=== PATIENT | male | born 1950 | race Caucasian/White ===

== ENCOUNTER 2020-01-06 10:13 | Day surgery (SDC) | payer MEDICARE, BC ==
[2020-01-06] MEDS ORDERED: Sodium Chloride 0.9% 10 ML Syringe IV ONE (10:14)
[2020-01-06] MEDS ORDERED: Midazolam 1 MG/ML 2 ML SDV IV ONE (10:14)
[2020-01-06] MEDS ORDERED: Dexamethasone 4 MG/ML SDV IV ONE (10:14)
[2020-01-06] MEDS ORDERED: Proparacaine 0.5% Ophth Soln 15 ML Bottle EYERT ONE (10:15)
[2020-01-06] MEDS ORDERED: Timolol Maleate 0.25% Ophth Soln 5 ML Bottle EYERT SCH (10:15)
[2020-01-06] MEDS ORDERED: Tropicamide 1% Ophth Soln 15 ML Bottle EYERT ONE (10:15)
[2020-01-06] MEDS ORDERED: Phenylephrine 10% Ophth Soln 5 ML Bot EYERT ONE (10:15)
[2020-01-06] MEDS ORDERED: Moxifloxacin 0.5% Ophth Soln 3 ML Bottle EYERT ONE (10:15)
[2020-01-06] MEDS ORDERED: Povidone-Iodine 5% Sterile Ophth Soln 30 ML Bottle EYERT ONE ×2 (10:15→10:58)
[2020-01-06] MEDS ORDERED: Dilation Soln 1 EA EACH EYERT ONE (10:15)
[2020-01-06] MEDS ORDERED: Sodium Chloride 0.9% 10 ML Syringe FLUSH PRN (10:15)
[2020-01-06 10:40] VITALS: PULSE 63
[2020-01-06] MEDS ORDERED: Tetracaine HCl/PF 0.5% 4 ML Bottle EYERT ONE (10:57)
[2020-01-06] MEDS ORDERED: Lidocaine 1% 30 ML SDV ONE (10:57)
[2020-01-06] MEDS ORDERED: Apraclonidine 0.5% Ophth Soln 5 ML Bot EYERT ONE (10:58)
[2020-01-06] MEDS ORDERED: Diclofenac Sodium 0.1% Ophth Soln 5 ML Bottle EYERT ONE (10:59)
[2020-01-06] MEDS ORDERED: Vancomycin 500 MG SDV EYERT ONE (10:59)
[2020-01-06] MEDS ORDERED: Dexamethasone/Neomycin/Polymyxin B Ophth Oint 3.5 GM Tube EYERT ONE (10:59)
[2020-01-06] MEDS ORDERED: Balanced Salt Solution Ophth Irrig 500 ML Bottle IOCULAR ONE (10:59)
[2020-01-06] MEDS ORDERED: Chondroitin Sulfate/Hyaluronate Sodium Ophth Inj 0.75 ML Syringe EYERT ONE (11:00)
[2020-01-06] MEDS ORDERED: Dexamethasone 4 MG/ML SDV ONE (11:06)
[2020-01-06 12:10] VITALS: BP 160/82
[2020-01-06] MEDS ORDERED: Timolol Maleate 0.5% Ophth Soln 5 ML Bottle EYERT SCH (12:30)
--- NOTE | 2020-01-07 09:15 | OR ---
DATE: 01/06/2020 PREOPERATIVE DIAGNOSIS: Visually significant complex cataract, right eye with small pupil/Malyugin Ring. POSTOPERATIVE DIAGNOSIS: Visually significant complex cataract, right eye with small pupil/Malyugin Ring. PROCEDURE: Extracapsular cataract extraction with intraocular lens implant, right eye. ANESTHESIA: Topical/local MAC. COMPLICATIONS: None. INDICATION: Mr. Sheth was seen in the clinic. 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 I explained options, offered cataract surgery, and I explained risks, including, but not limited to, infection, retinal detachment, loss of vision, need for additional surgery, risks associated with anesthesia including loss of life. 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 We discussed implant options. He has requested a monofocal implant targeting mild myopia. He understands that he may still require glasses for some activities following surgery. OPERATIVE DESCRIPTION: After informed consent was obtained and the risks, benefits, and alternatives were explained, the patient was brought to the operative suite and topical anesthesia was administered. The patient was then prepped and draped in the sterile fashion and attention was placed on the right eye. A sterile lid speculum was placed into the right eye to allow operative exposure. A full-thickness paracentesis was made in the temporal portion of the operative eye. Preservative-free lidocaine 0.1 mL was injected into the anterior chamber followed by viscoelastic. A full-thickness corneal incision was then made into the anterior chamber. A bent needle cystotome was used to create a small peri in the anterior capsule. The capsulorrhexis forceps was then used to create a 360-degree curvilinear capsulorrhexis. The nucleus was then removed using a phacoemulsification handpiece and the remaining cortical material was then removed with irrigation and aspiration handpiece. Following removal of the cortical material, the capsular bag was then inspected and noted to be free of any holes or tears. Viscoelastic was then injected into the capsular bag and the intraocular lens was inserted into the capsular bag. The viscoelastic material was then removed from both the anterior and posterior chambers and from behind the IOL. The lens and capsular bag were then reinspected. The IOL was well centered and the capsular bag intact. The wound and paracentesis sites were inspected and hydrated with balanced saline solution. Both were found to be self- sealing. The intraocular pressure was assessed digitally and found to be within normal range. A good red reflex was noted at the completion of the procedure. No complications occurred during the operation. At the completion of the procedure, Maxitrol, Voltaren, and Iopidine drops were placed into the operative eye. A sterile eye shield was placed over the operative eye and the patient was transported to the postoperative recovery area having tolerated the procedure well. Postoperative instructions were given along with a postoperative appointment. The patient was advised to call with any questions or concerns. [facility] /[id number]
== END 2020-01-06 12:12 | disposition home or self-care (01) ==
LOC: DL.SDS 10:13
PROVIDERS: ATTEND Ophthalmology
DX: H26.8 Other specified cataract (principal); Z88.0 Allergy status to penicillin; Z87.39 Personal history of other diseases of the musculoskeletal system and connective tissue; Z85.79 Personal history of other malignant neoplasms of lymphoid, hematopoietic and related tissues
CPT/HCPCS: 00142; A9270-GY; J1100; J2001; J2250; J3370; V2632

== ENCOUNTER 2020-01-13 09:48 | Day surgery (SDC) | payer MEDICARE, BC ==
[~2020-01-13 09:48] MED LIST: Povidone-Iodine 5% Sterile Ophth Soln 30 ML Bottle ONE
[2020-01-13] MEDS ORDERED: Midazolam 1 MG/ML 2 ML SDV IV ONE (09:49)
[2020-01-13] MEDS ORDERED: Dexamethasone 4 MG/ML SDV IV ONE (09:49)
[2020-01-13] MEDS ORDERED: Sodium Chloride 0.9% 10 ML Syringe IV ONE (09:49)
[2020-01-13] MEDS ORDERED: Dilation Soln 1 EA EACH EYELF ONE (10:15)
[2020-01-13] MEDS ORDERED: Moxifloxacin 0.5% Ophth Soln 3 ML Bottle EYELF ONE (10:15)
[2020-01-13] MEDS ORDERED: Timolol Maleate 0.5% Ophth Soln 5 ML Bottle EYELF ONE (10:15)
[2020-01-13] MEDS ORDERED: Acetaminophen 325 MG Tab PO PRN (10:15)
[2020-01-13] MEDS ORDERED: Povidone-Iodine 5% Sterile Ophth Soln 30 ML Bottle EYELF ONE ×2 (10:15→10:58)
[2020-01-13] MEDS ORDERED: Ondansetron 4 MG/2 ML SDV IVPUSH PRN (10:15)
[2020-01-13] MEDS ORDERED: Phenylephrine 10% Ophth Soln 5 ML Bot EYELF PRN (10:15)
[2020-01-13] MEDS ORDERED: Sodium Chloride 0.9% 10 ML Syringe FLUSH PRN (10:15)
[2020-01-13] MEDS ORDERED: Tropicamide 1% Ophth Soln 15 ML Bottle EYELF ONE (10:15)
[2020-01-13] MEDS ORDERED: Proparacaine 0.5% Ophth Soln 15 ML Bottle EYELF ONE (10:15)
[2020-01-13] MEDS ORDERED: Lidocaine 1% 30 ML SDV ONE (10:57)
[2020-01-13] MEDS ORDERED: Apraclonidine 0.5% Ophth Soln 5 ML Bot EYELF ONE (10:58)
[2020-01-13] MEDS ORDERED: Tetracaine HCl/PF 0.5% 4 ML Bottle EYELF ONE (10:58)
[2020-01-13] MEDS ORDERED: Diclofenac Sodium 0.1% Ophth Soln 5 ML Bottle EYELF ONE (10:58)
[2020-01-13] MEDS ORDERED: Dexamethasone/Neomycin/Polymyxin B Ophth Oint 3.5 GM Tube EYELF ONE (10:58)
[2020-01-13] MEDS ORDERED: Chondroitin Sulfate/Hyaluronate Sodium Ophth Inj 0.75 ML Syringe EYELF ONE (10:59)
[2020-01-13] MEDS ORDERED: Balanced Salt Solution Ophth Irrig 500 ML Bottle IOCULAR ONE (10:59)
[2020-01-13] MEDS ORDERED: Vancomycin 500 MG SDV EYELF ONE (10:59)
[2020-01-13 12:14] VITALS: BP 140/87; PULSE 64
--- NOTE | 2020-01-13 14:15 | OR ---
DATE: 01/13/2020 PREOPERATIVE DIAGNOSIS: Visually significant mixed cataract, left eye. POSTOPERATIVE DIAGNOSIS: Visually significant mixed cataract, left eye. PROCEDURE: Extracapsular cataract extraction with intraocular lens implant, left eye. ANESTHESIA: Topical/local MAC. COMPLICATIONS: None. INDICATION: Mr. Sheth was seen in the clinic with complaints of blurred vision. Examination revealed visually significant mixed cataract. I explained options, offered cataract surgery and I explained risks, including, but not limited to, infection, retinal detachment, loss of vision, need for additional surgery, and risks associated with anesthesia. We discussed implant options. He has requested a monofocal implant. We discussed refractive targets. He has requested targeting mild myopia. 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 I explained the increased risk profile associated with pseudoexfoliation including the potential for lens or implant dislocation. He has voiced an understanding with respect to risks and wished to proceed. OPERATIVE DESCRIPTION: After informed consent was obtained and the risks, benefits, and alternatives were explained, the patient was brought to the operative suite and topical anesthesia was administered. The patient was then prepped and draped in the sterile fashion and attention was placed on the left eye. A sterile lid speculum was placed into the left eye to allow operative exposure. A full-thickness paracentesis was made in the temporal portion of the operative eye. Preservative-free lidocaine 0.1 mL was injected into the anterior chamber followed by viscoelastic. A full-thickness corneal incision was then made into the anterior chamber. A bent needle cystotome was used to create a small peri in the anterior capsule. The capsulorrhexis forceps was then used to create a 360-degree curvilinear capsulorrhexis. The nucleus was then removed using a phacoemulsification handpiece and the remaining cortical material was then removed with irrigation and aspiration handpiece. Following removal of the cortical material, the capsular bag was then inspected and noted to be free of any holes or tears. Viscoelastic was then injected into the capsular bag and the intraocular lens was inserted into the capsular bag. The viscoelastic material was then removed from both the anterior and posterior chambers and from behind the IOL. The lens and capsular bag were then reinspected. The IOL was well centered and the capsular bag intact. The wound and paracentesis sites were inspected and hydrated with balanced saline solution. Both were found to be self- sealing. The intraocular pressure was assessed digitally and found to be within normal range. A good red reflex was noted at the completion of the procedure. No complications occurred during the operation. At the completion of the procedure, Maxitrol, Voltaren, and Iopidine drops were placed into the operative eye. A sterile eye shield was placed over the operative eye and the patient was transported to the postoperative recovery area having tolerated the procedure well. Postoperative instructions were given along with a postoperative appointment. The patient was advised to call with any questions or concerns. [facility] /[id number]
== END 2020-01-13 11:55 | disposition home or self-care (01) ==
LOC: DL.SDS 09:48
PROVIDERS: ATTEND Ophthalmology
DX: H25.813 Combined forms of age-related cataract, bilateral (principal); E66.9 Obesity, unspecified; Z79.899 Other long term (current) drug therapy; Z88.0 Allergy status to penicillin; Z85.79 Personal history of other malignant neoplasms of lymphoid, hematopoietic and related tissues; Z87.39 Personal history of other diseases of the musculoskeletal system and connective tissue; Z68.32 Body mass index [BMI] 32.0-32.9, adult
CPT/HCPCS: 00142; A9270-GY; J1100; J2001; J2250; J3370; V2632

== ENCOUNTER 2023-04-22 07:04 | Emergency (ER) | payer MEDICARE, BC ==
[2023-04-22 07:38] VITALS: BP 154/92; PULSE 67
[2023-04-22 08:02] LABS: BASOPHILS PERCENT AUTO 1.3 % (0.0-1.0); EOSINOPHILS PERCENT AUTO 3.4 % (1.0-3.0); HEMATOCRIT 49.9 % (40.0-54.0); HEMOGLOBIN 16.4 g/dL (14.0-18.0); LYMPHOCYTES PERCENT AUTO 32.6 % (20.5-50.1); MEAN CORPUSCULAR HEMOGLOBIN 30.1 pg (27.0-34.0); MEAN CORPUSCULAR HGB CONC 32.9 g/dL (33.0-35.0); MEAN CORPUSCULAR VOLUME 91.7 fL (80-100); MONOCYTES PERCENT AUTO 8.8 % (2-8); NEUTROPHILS PERCENT AUTO 53.9 % (42.2-75.2); PLATELET COUNT,PLT 239 10^3/uL (150-450); RED BLOOD CELL COUNT 5.44 10^6/uL (4.6-6.2)
[2023-04-22] MEDS: Sodium Chloride 0.9% 10 ML Syringe FLUSH PRN ×2 (08:09→08:41)
[2023-04-22 08:19] LABS: ALANINE AMINOTRANSFERASE,ALT 17 U/L (16-63); ALBUMIN 3.3 g/dL (3.4-5.0); ALKALINE PHOSPHATASE 124 U/L (46-116); ANION GAP 10.6 mEq/L (7-13); ASPARTATE AMNIOTRANSFERASE,AST 12 U/L (15-37); BILIRUBIN TOTAL 0.6 mg/dL (0.2-1.0); BLOOD UREA NITROGEN,BUN 14 mg/dL (7-18); BUN/CREATININE RATIO 10.7 (No establ ref range); CARBON DIOXIDE,CO2 29 mmol/L (21-32); CHLORIDE,CL 103 mmol/L (98-107); CREATININE 1.31 mg/dL (0.70-1.30); EST CRCL DRUG DOSING (CG) 59.13 mL/min; GLUCOSE RANDOM 110 mg/dL (70-99); POTASSIUM,K 4.6 mmol/L (3.5-5.1); PROTEIN TOTAL,TP 7.1 g/dL (6.4-8.2); SODIUM,NA 138 mmol/L (136-145)
[2023-04-22 08:22] LABS: LACTIC ACID 1.2 mmol/L (0.4-2.0)
[2023-04-22 08:23] LABS: A/G RATIO 0.87; C-REACTIVE PROTEIN < 0.50 ng/dL (<=0.50); ESTIMATED GFR 57 mL/min (>=60)
[2023-04-22] MEDS ORDERED: Sodium Chloride 0.9% 1,000 ML IV ONE (08:35)
[2023-04-22] MEDS ORDERED: Iopamidol 755 Mg/ML 100 ML Bottle IVPUSH ONE (08:35)
[2023-04-22] MEDS ORDERED: valACYclovir 1,000 MG Tab PO ONE (08:47)
[2023-04-22] MEDS ORDERED: Dexamethasone 4 MG/ML SDV IVPUSH ONE (08:48)
[2023-04-22] MEDS ORDERED: Lidocaine 5% Oint 35.44 GM Tube TOP ONE (09:57)
[2023-04-22] MEDS ORDERED: valACYclovir 1,000 MG Tab ONE (10:43)
== END 2023-04-22 10:57 | disposition home or self-care (01) ==
LOC: DL.ED 07:04
DX: I77.819 Aortic ectasia, unspecified site (principal); B02.9 Zoster without complications; Z90.49 Acquired absence of other specified parts of digestive tract; Z79.899 Other long term (current) drug therapy; Z88.0 Allergy status to penicillin
CPT/HCPCS: 36415; 71275; 80053; 83605; 84145; 84484; 85025; 86140; 93005; 93010; 96361; 96374; 99284; 99285; A9270; J1100; J7030; Q9967; J3490

== ENCOUNTER 2023-05-27 17:09 | Emergency (ER) | payer MEDICARE, BC ==
[2023-05-27 17:41] VITALS: BP 126/90; PULSE 81
[2023-05-27] MEDS: Enoxaparin 100 MG/1 ML Syringe SUBCUT ONE (18:21)
[2023-05-27] MEDS: Apixaban 5 MG Tab PO ONE (18:21)
== END 2023-05-27 18:30 | disposition home or self-care (01) ==
LOC: DL.ED 17:09
DX: I26.99 Other pulmonary embolism without acute cor pulmonale (principal); Z88.0 Allergy status to penicillin
CPT/HCPCS: 96372; 99284; A9270-GY; J1650

== ENCOUNTER 2023-06-13 16:24 | Emergency (ER) | payer MEDICARE, BC ==
[2023-06-13] MEDS ORDERED: Sodium Chloride 0.9% 10 ML Syringe FLUSH PRN (17:05)
[2023-06-13 17:20] LABS: BASOPHILS PERCENT AUTO 0.6 % (0.0-1.0); EOSINOPHILS PERCENT AUTO 2.7 % (1.0-3.0); HEMOGLOBIN 15.6 g/dL (14.0-18.0); LYMPHOCYTES PERCENT AUTO 35.1 % (20.5-50.1); MEAN CORPUSCULAR HEMOGLOBIN 31.4 pg (27.0-34.0); MEAN CORPUSCULAR HGB CONC 33.9 g/dL (33.0-35.0); MEAN CORPUSCULAR VOLUME 92.6 fL (80-100); NEUTROPHILS PERCENT AUTO 52.6 % (42.2-75.2); PLATELET COUNT,PLT 242 10^3/uL (150-450); RED BLOOD CELL COUNT 4.97 10^6/uL (4.6-6.2); WHITE BLOOD CELL COUNT,WBC 8.8 10^3/uL (5.0-10.0)
[2023-06-13 17:31] LABS: ALBUMIN 3.1 g/dL (3.4-5.0); ANION GAP 13.4 mEq/L (7-13); BILIRUBIN TOTAL 0.4 mg/dL (0.2-1.0); BUN/CREATININE RATIO 13.6 (No establ ref range); CALCIUM 8.7 mg/dL (8.5-10.1); CREATININE 1.25 mg/dL (0.70-1.30); EST CRCL DRUG DOSING (CG) 61.03 mL/min; POTASSIUM,K 4.4 mmol/L (3.5-5.1); PROTEIN TOTAL,TP 6.7 g/dL (6.4-8.2)
[2023-06-13 17:34] LABS: A/G RATIO 0.86
[2023-06-13 17:45] LABS: PROTHROMBIN TIME 10.4 SEC (9.0-12.0)
[2023-06-13] MEDS: Iopamidol 755 Mg/ML 100 ML Bottle IVPUSH ONE (18:08)
[2023-06-13 18:32] VITALS: BP 131/79; PULSE 75
== END 2023-06-13 19:35 | disposition home or self-care (01) ==
LOC: DL.ED 16:24
DX: H33.22 Serous retinal detachment, left eye (principal); H53.8 Other visual disturbances; B02.29 Other postherpetic nervous system involvement; Z90.49 Acquired absence of other specified parts of digestive tract; Z88.0 Allergy status to penicillin
CPT/HCPCS: 36415; 70450; 70496; 70498; 71045; 80053; 82947; 85025; 85610; 93005; 93010; 99284; 99285; Q9967